=== PATIENT | female | born 1995 | race Asian ===

== ENCOUNTER 2019-09-18 17:31 | Inpatient (IN) | payer OTHER ==
[~2019-09-18] VITALS: Ht 165.1 cm; Wt 59.3 kg
[2019-09-18 19:23] LABS: AMPHETAMINES LEVEL URINE NEGATIVE (NEGATIVE); BARBITURATES URINE NEGATIVE (NEGATIVE); BENZODIAZEPINES URINE NEGATIVE (NEGATIVE); CANNABINOIDS URINE NEGATIVE (NEGATIVE); COCAINE METABOLITE URINE NEGATIVE (NEGATIVE); METHADONE URINE NEGATIVE (NEGATIVE); OPIATES URINE NEGATIVE (NEGATIVE); PHENCYCLIDINE URINE NEGATIVE (NEGATIVE)
[2019-09-18 20:37] LABS: HEMATOCRIT 40.4 % (36.0-47.0); HEMOGLOBIN 12.9 g/dl (12.0-15.5); MEAN CORPUSCULAR HEMOGLOBIN 30.6 pg (27.0-33.0); MEAN CORPUSCULAR HGB CONC 31.9 g/dl (32.0-36.5); PLATELET COUNT, AUTOMATED 258 10^3/uL (150-450); RED BLOOD COUNT 4.21 10^6/uL (4.00-5.40); WHITE BLOOD COUNT 7.6 10^3/uL (4.0-10.0)
[2019-09-18 21:16] LABS: ACETAMINOPHEN LEVEL < 2.0 UG/ML (10.0-30.0); ALBUMIN 4.1 GM/DL (3.2-5.2); ALT/SGPT 16 U/L (12-78); BILIRUBIN,DIRECT 0.1 MG/DL (0.0-0.2); BILIRUBIN,TOTAL 0.5 MG/DL (0.2-1.0); BLOOD UREA NITROGEN 12 MG/DL (7-18); CALCIUM LEVEL 8.8 MG/DL (8.5-10.1); CARBON DIOXIDE LEVEL 26 MEQ/L (21-32); CHLORIDE LEVEL 106 MEQ/L (98-107); CREATININE FOR GFR 0.63 MG/DL (0.55-1.30); ETHYL ALCOHOL (ETHANOL) < 0.003 % (0.000-0.010); GLOMERULAR FILTRATION RATE > 60.0 (>60); GLUCOSE, FASTING 77 MG/DL (70-100); SALICYLATE LEVEL < 1.7 MG/DL (5.0-30.0); SODIUM LEVEL 140 MEQ/L (136-145); TOTAL PROTEIN 7.5 GM/DL (6.4-8.2)
[2019-09-18 21:40] LABS: HCG, SERUM QUALITATIVE NEGATIVE (NEGATIVE)
[2019-09-18] MEDS ORDERED: MOM 30ML SUSPENSION UDC PO PRN (22:15)
[2019-09-18] MEDS ORDERED: ACETAMINOPHEN TAB 650MG DOSE (2X325MG) PO PRN (22:15)
[2019-09-18] MEDS ORDERED: MAALOX 30 ML SUSP *UDC PO PRN (22:15)
[2019-09-18] MEDS ORDERED: traZODone 50 MG TAB PO PRN (22:15)
[2019-09-18] MEDS ORDERED: NICOTINE 21MG/24HR 1 EA TRANSDERMAL TD PRN (22:15)
[2019-09-18 23:51] VITALS: BP 129/89
[2019-09-19 06:37] VITALS: BP 111/61
--- NOTE | 2019-09-19 07:40 | HPEPDOC ---
[facility] Medical History & Physical Date of Admission September 19, 2019 Date of Service: September 19, 2019 History and Physical CHIEF COMPLAINT: Medical consult HISTORY OF PRESENT ILLNESS: Patient is a 33-year-old female with PMH L knee chondromalacia patella, presenting with unspecified depressive disorder and thoughts of SI, however denies SI today. . She does report headache in the temporal region, which shes had in the past. She associates this headache with insomnia and takes [id number] gummies at bedtime, with minimal relief. He denies any changes in vision, chest pain, shortness of breath, nausea, vomiting, abdominal pain, issues with voiding or stooling, or new rashes. She does report baseline left knee pain, had workup in the past with recommendations for conservative management. In the ED, vital signs stable. Labs include CBC and CMP versus normal limits, TSH also within normal limits, hCG negative, UDS negative, salicylates, acetaminophen, alcohol level negative. ROS: 10 point review systems negative except per above. PMH: See above. PSH: None Family history: Reviewed and noncontributory. Father has a history of NV 4, and angina Social history: No tobacco, alcohol, or illicits, is in the [employer] Medications: Reviewed Allergies: NKDA PHYSICAL EXAMINATION: VITAL SIGNS: Please see below. GENERAL: female in No distress HEENT: Normocephalic, atraumatic, moist mucous membranes NECK: Supple CARDIOVASCULAR EXAMINATION: S1, S2 RESPIRATORY EXAMINATION: CTAB ABDOMINAL EXAMINATION: Soft, nontender, nondistended, positive bowel sounds EXTREMITIES: no edema SKIN: No rash NEUROLOGICAL EXAMINATION: Awake PSYCHIATRIC EXAMINATION: Calm and cooperative, flat affect Patient is a 33-year-old female with PMH L knee chondromalacia patella, presenting with unspecified depressive disorder. #unspecified depressive disorders with SI: Well defer to primary team on management #insomnia: likely secondary to above, trial melatonin qhs prn #muscle tension DICKSON: Tylenol prn # L knee chondromalacia patella: Continue Tylenol vs NSIADS prn, elevation, heating pad when necessary, if worse, may consider PT for exercises DVT ppx: freq ambulation Full code Dispo: f/u with primary team on dc planning Thank you for the consult. Vital Signs Vital Signs Date Time Temp Pulse Resp B/P (MAP) Pulse Ox O2 Delivery O2 Flow Rate FiO2 09/19/19 06:37 98.3 59 12 111/61 (78) 09/18/19 23:51 100 Room Air Laboratory Data Labs 24H Laboratory Tests 2 09/18/19 18:52: Urine Opiates Screen NEGATIVE, Urine Methadone Screen NEGATIVE, Urine Barbiturates Screen NEGATIVE, Urine Phencyclidine Screen NEGATIVE, Urine Amphetamines Screen NEGATIVE, Urine Benzodiazepines Screen NEGATIVE, Urine Co jazzy Metabolite Screen NEGATIVE, Urine Cannabinoids Screen NEGATIVE 09/18/19 20:05: Nucleated Red Blood Cells % (auto) 0.0, Anion Gap 8, Glomerular Filtration Rate > 60.0, Calcium Level 8.8, Total Bilirubin 0.5, Direct Bilirubin 0.1, Aspartate Amino Transf (AST/SGOT) 16, Alanine Aminotransferase (ALT/SGPT) 16, Alkaline Phosphatase 59, Total Protein 7.5, Albumin 4.1, Albumin/Globulin Ratio 1.21, Thyroid Stimulating Hormone (TSH) 2.530, Human Chorionic Gonadotropin, Qual NEGA TIVE, Salicylates Level < 1.7L, Acetaminophen Level < 2.0L, Ethyl Alcohol Level < 0.003 CBC/BMP Laboratory Tests 09/18/19 20:05 Home Medications No Active Prescriptions or Reported Meds Allergies Coded Allergies: No Known Allergies (Unverified , 09/18/19) A-FIB/CHADSVASC A-FIB History Current/History of A-Fib/PAF?: No RUBY AKHTAR MD September 19, 2019 07:35
[2019-09-19] MEDS ORDERED: IBUPROFEN 600 MG TAB PO PRN (09:00)
[2019-09-19] MEDS ORDERED: RAMELTEON 8 MG TAB (ROZEREM) PO PRN (09:00)
[2019-09-19] MEDS ORDERED: INFLUENZA QUADRIVALENT PF VACCINE 0.5ML SYRINGE (90686) IM ONE (09:00)
--- NOTE | 2019-09-19 09:54 | MHHPEPDOC ---
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 She reported that she had had increasing depression, low mood, loss of interest and generally became suicidal and wanting to kill herself. She reports that she moved to [place] at her parent's behest, but does not like living here. She reports that she finds herself stressed and wanting to return home, feeling unsupported in the local area. Review Of Systems Depression: As above. Anxiety: As above. Louann: The patient denies any episodes of euphoria/dysphoria associated with decreased need for sleep, hedonism, talkatively or impulsivity lasting longer than 5 days. Psychotic: The patient denies any experiences of auditory or visual hallucinations. They deny any episodes of paranoia or delusional thinking in the past Trauma: The patient denies any traumatic events associated with nightmares or i ntrusive thoughts. Borderline: Not screened at this time. Past Psychiatric History Has no history of admissions, suicide attempts or medication trials. Had previously seen [facility] for walk-[facility]. Allergies Please see below. Family Psychiatric History The patient denies/is unaware any history of mental health history including addictions and suicide. Social History Patient grew up in [facility], joined the and was transported here. She currently lives with her significant other and their father. She reports having difficulty with cultural adjustments. Substance Abuse History The patient denies any excessive alcohol use, tobacco or illicit drug use, denies history of substance use treatment. Medical History Patient has no significant past medical history. Mental Status Examination General: Well dressed with good hygiene Speech: Spontaneous and fluid Thought processes: Linear and logical MSK: Smooth and coordinated gait, no signs of tremors or involuntary orofacial movements Thought content: Hopelessness Abstract reasoning, and computation: Intact Description of associations: Intact Description of abnormal or psychotic thoughts: Reports hopelessness and suicidal thoughts. Judgment: Impaired Insight: Impaired Orientation: Alert and orientated 3 Cognition: Grossly normal Recent and remote memory: Intact Attention span and concentration: Intact Fund of knowledge: Adequate Mood: "okay" Affect: Profoundly dysthymic and constricted Diagnoses MDD, single episode, severe. Assessment and Plan MDD: Start sertraline 25 mg daily. The risks, benefits as well as common side effects as well as alternative treatments (including non-treatment) were discussed with the patient both in general and for their particular case. The patient selected this option out of a range. Disposition Patient will need to be retained on an involuntary stay due to the suicidal thoughts and severe depression. Problem List 1. Risk for suicide. 2. Depression. Initial Treatment Plan 1. Patient was admitted on a 9.39 legal status. 2. Complete history was obtained. 3. With patients permission, family will be contacted and database will be expanded. 4. Patients medication regimen will be reviewed and changed accordingly. 5. Patient will be provided with protected environment. 6. Patient will be treated with individual, group, and milieu therapies. 7. Patient will receive supportive psych-education. 8. Discharge planning will commence immediately. 9. Outpatient follow-up treatment will be strongly recommended. 10. The initial treatment plan will focus initially on: Estimated Length Of Stay 3 days. Time Spent 70 minutes with greater than 50% of the time spent on counseling/coordination of care. Vital Signs Vital Signs Date Time Temp Pulse Resp B/P (MAP) Pulse Ox O2 Delivery O2 Flow Rate FiO2 09/19/19 06:37 98.3 59 12 111/61 (78) 09/18/19 23:51 100 Room Air Laboratory Data 24H Labs Laboratory Tests 2 09/18/19 18:52: Urine Opiates Screen NEGATIVE, Urine Methadone Screen NEGATIVE, Urine Barbiturates Screen NEGATIVE, Urine Phencyclidine Screen NEGATIVE, Urine Amphetamines Screen NEGATIVE, Urine Benzodiazepines Screen NEGATIVE, Urine Cocaine Metabolite Screen NEGATIVE, Urine Cannabinoids Screen NEGATIVE 09/18/19 20:05: Nucleated Red Blood Cells % (auto) 0.0, Anion Gap 8, Glomerular Filtration Rate > 60.0, Calcium Level 8.8, Total Bilirubin 0.5, Direct Bilirubin 0.1, Aspartate Amino Transf (AST/SGOT) 16, Alanine Aminotransferase (ALT/SGPT) 16, Alkaline Phosphatase 59, Total Protein 7.5, Albumin 4.1, Albumin/Globulin Ratio 1.21, Thyroid Stimulating Hormone (TSH) 2.530, Human Chorionic Gonadotropin, Qual NEGATIVE, Salicylates Level < 1.7L, Acetaminophen Level < 2.0L, Ethyl Alcohol Level < 0.003 CBC/BMP Laboratory Tests 09/18/19 20:05 Medications No Active Prescriptions or Reported Meds Allergies Coded Allergies: No Known Allergies (Unverified , 09/18/19) RONEY DANIEL DO September 19, 2019 09:54
[2019-09-19] MEDS ORDERED: SERTRALINE HCL 25 MG TABLET PO ONE (11:15)
[2019-09-19 16:23] VITALS: BP 118/73
[2019-09-20 06:19] VITALS: BP 104/66
[2019-09-20] MEDS: SERTRALINE HCL 25 MG TABLET PO SCH (08:20)
--- NOTE | 2019-09-20 09:13 | MHIPNPDOC ---
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 She reported that she had had increasing depression, low mood, loss of interest and generally became suicidal and wanting to kill herself. She reports that she moved to [place] at her parent's behest, but does not like living here. She reports that she finds herself stressed and wanting to return home, feeling unsupported in the local area. Interval History The patient is met with today. She reports she is feeling better and having less depression. She reports her loss of interest and suicidal thoughts are managed since starting the sertraline. She reports tolerating it well with no problems. She has been engaging in care with no behavioral problems overnight. Review Of Systems General: Denies fever or appetite changes Cardiovascular: Denies Chest pain or palpations GI: Denies Nausea, vomiting, or bowel changes Respiratory: Denies shortness of breath or cough Neuro: Denies dizziness, tremors Derm: Denies any rashes or pruritus : Denies any dysuria or urinary problems MSK: Denies any muscle tightness or stiffness HEENT: Denies any vision changes or headaches Insert normal exam Psychotherapy None on this visit. Vital Signs Reviewed. Mental Status Examination General: Well dressed with good hygiene Speech: Spontaneous and fluid Thought processes: Linear and logical MSK: Smooth and coordinated gait, no signs of tremors or involuntary orofacial movements Thought content: Future orientated Abstract reasoning, and computation: Intact Description of associations: Intact Description of abnormal or psychotic thoughts: Denies any suicidal or homicidal ideation. Denies any auditory or visual hallucinations. Does not appear to be responding to internal stimuli. Does not appear to be endorsing any bizarre or p aranoid ideation. Judgment: fair Insight: fair Orientation: Alert and orientated 3 Cognition: Grossly normal Recent and remote memory: Intact Attention span and concentration: Intact Fund of knowledge: Adequate Mood: "okay" Affect: Euthymic with a full range Diagnoses MDD, single episode, severe. Assessment and Plan MDD: Continue sertraline 25 mg daily. The risks, benefits as well as common side effects as well as alternative treatments (including non-treatment) were discussed with the patient both in [facility] and for their particular case. The patient selected this option out of a range. Disposition We'll continue to observe over the weekend, if continues to improve, we'll discharge on Monday. Time Spent 15 minutes. Monday Vital Signs Vital Signs Date Time Temp Pulse Resp B/P (MAP) Pulse Ox O2 Delivery O2 Flow Rate FiO2 09/20/19 06:19 98.2 64 14 104/66 (79) 97 Room Air Current Medications Current Medications Medications (Trade) Dose Ordered Sig/Alana Route PRN Reason Start Time Stop Time Status Last Admin Dose Admin Acetaminophen (Tylenol Tab) 650 mg Q6HP PRN PO HEADACHE or DISCOMFORT 09/18/19 22:15 Al Hydrox/Mg Hydrox/Simethicone (Mylanta) 30 ml Q4HP PRN PO HEARTBURN/INDIGESTION 09/18/19 22:15 Home Med (Med Rec Complete!) ASDIRECTED XX 09/18/19 21:45 09/18/19 21:36 DC Ibuprofen (Advil) 600 mg Q6HP PRN PO L knee pain if tylenol fails 09/19/19 09:00 Magnesium Hydroxide (Milk Of Magnesia) 30 ml DAILYPRN PRN PO CONSTIPATION 09/18/19 22:15 Nicotine (Nicoderm Cq 21mg) 1 patch DAILY PRN TD Nicotine withdrawl 09/18/19 22:15 Ramelteon (Rozerem) 8 mg QHS PRN PO INSOMNIA 09/19/19 09:00 09/19/19 09:03 DC Sertraline HCl (Zoloft) 25 mg DAILY PO 09/20/19 09:00 09/20/19 08:20 Trazodone HCl (Desyrel) 50 mg QHSP PRN PO INSOMNIA 09/18/19 22:15 Allergies Coded Allergies: No Known Allergies (Unverified , 09/18/19) RONEY DANIEL DO September 20, 2019 09:13
[2019-09-20 16:04] VITALS: BP 134/89
[2019-09-21 06:37] VITALS: BP 105/51
[2019-09-21] MEDS: SERTRALINE HCL 25 MG TABLET PO SCH (08:45)
[2019-09-21 16:17] VITALS: BP 111/66
[2019-09-22 06:34] VITALS: BP 115/56
[2019-09-22] MEDS: SERTRALINE HCL 25 MG TABLET PO SCH (08:22)
[2019-09-22 09:00] VITALS: BP 115/56
--- NOTE | 2019-09-22 09:49 | MHIPN ---
DATE: 09/21/2019 The patient today tells me that she is doing "good". She says that she feels the medications are helping her. She says she slept good. MENTAL STATUS EXAMINATION: She is alert and oriented times three. Pleasant and cooperative. Verbally spontaneous. There is no formal thought disorder. Her mood is good. Affect is appropriate to mood. She is not psychotic. She is denying suicidal or homicidal ideations. Concentration is fair. Memory is good. Insight and judgment fair. DIAGNOSIS: Major depressive disorder, single episode, severe. TREATMENT PLAN: We will continue to monitor the patient for continued stabilization of her mood and continued resolution of suicidal ideations.
[2019-09-22 16:11] VITALS: BP 121/67
[2019-09-23 06:39] VITALS: BP 124/60
[2019-09-23] MEDS: SERTRALINE HCL 25 MG TABLET PO SCH (09:54)
[2019-09-23] MEDS ORDERED: SERT25TA21 PO (10:36)
[2019-09-23] MEDS ORDERED: TRAZ-252 PO (10:36)
[2019-09-23] MEDS ORDERED: NICO21PAT TD (10:36)
--- NOTE | 2019-09-23 11:57 | MHIPNPDOC ---
[facility] Progress Note Progress Note DATE OF SERVICE: 09/23/19 HISTORY: . VITAL SIGNS: See below. NEW TEST RESULTS: . CURRENT MEDICATIONS: See below. MENTAL STATUS EXAMINATION: Patient is a -year old female, who is . Speech: Is . Language skills are . Thought processes including: . Thought content: . Abstract reasoning, and computation: . Description of asso ciations: . Description of abnormal or psychotic thoughts: . Judgment: . Insight: [very limited, good, fair. poor]. Orientation: . Recent and remote memory: . Attention span and concentration: . Language: . Fund of knowledge: . Mood: . Affect: . DIAGNOSES: 1. . 2. . 3. . ASSESSMENT: MANAGEMENT PLAN: . TIME SPENT: minutes. Vital Signs Vital Signs Date Time Temp Pulse Resp B/P (MAP) Pulse Ox O2 Delivery O2 Flow Rate FiO2 09/23/19 06:39 97.4 50 14 124/60 (81) Room Air 09/22/19 09:00 98 Current Medications Current Medications Medications (Trade) Dose Ordered Sig/Alana Route PRN Reason Start Time Stop Time Status Last Admin Dose Admin Acetaminophen (Tylenol Tab) 650 mg Q6HP PRN PO HEADACHE or DISCOMFORT 09/18/19 22:15 Al Hydrox/Mg Hydrox/Simethicone (Mylanta) 30 ml Q4HP PRN PO HEARTBURN/INDIGESTION 09/18/19 22:15 Home Med (Med Rec Complete!) ASDIRECTED XX 09/18/19 21:45 09/18/19 21:36 DC Ibuprofen (Advil) 600 mg Q6HP PRN PO L knee pain if tylenol fails 09/19/19 09:00 Magnesium Hydroxide (Milk Of Magnesia) 30 ml DAILYPRN PRN PO CONSTIPATION 09/18/19 22:15 Nicotine (Nicoderm Cq 21mg) 1 patch DAILY PRN TD Nicotine withdrawl 09/18/19 22:15 Ramelteon (Rozerem) 8 mg QHS PRN PO INSOMNIA 09/19/19 09:00 09/19/19 09:03 DC Sertraline HCl (Zoloft) 25 mg DAILY PO 09/20/19 09:00 09/23/19 09:54 Trazodone HCl (Desyrel) 50 mg QHSP PRN PO INSOMNIA 09/18/19 22:15 Allergies Coded Allergies: No Known Allergies (Unverified , 09/18/19) RONEY DANIEL DO September 23, 2019 11:57
--- NOTE | 2019-09-23 23:07 | MHIPN ---
DATE: 09/22/2019 The patient tells me today that she had just been sleeping, but she was alert enough. She said she slept good last night. She says that she is only a little depressed because at this point she would like to be discharged. MENTAL STATUS EXAM: The patient is alert and oriented times three. Eye contact is good. Verbally spontaneous. There is no formal thought disorder. She says her mood was mildly depressed. Affect full range and appropriate. She is not psychotic, suicidal or homicidal. Concentration is fair. Memory intact. Insight and judgment is fair. DIAGNOSIS: Major depressive disorder, single episode, severe. TREATMENT PLAN: At this point, we will continue to monitor this patient for continued elevation and stabilization of her mood and continued resolution of any suicidal ideation. CESAR
--- NOTE | 2019-09-24 16:31 | MHDSPDOC ---
[facility] Discharge Summary Discharge Summary DATE OF ADMISSION: September 18, 2019 at 22:03 DATE OF DISCHARGE: September 23, 2019 at 12:50 Discharge Norma In MRN: N/A Date of : N/A Date of Service: 09/23/2019 Diagnoses MDD, single episode, severe. 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 She reported that she had had increasing depression, low mood, loss of interest and generally became suicidal and wanting to kill herself. She reports that she moved to [place] at her parent's behest, but does not like living here. She reports that she finds herself stressed and wanting to return home, feeling unsupported in the local area. Consultants Involved Hospitalist/PCP screening Treatment and Progress On The Unit The patient is admitted to the inpatient mental health unit. She is initially started on sertraline 25 mg daily with positive results, her depression resolves quite quickly. Her fatigue improves and she engages in treatment more. She was observed over the weekend and further made good improvements improving in her insight and ability to attend to her needs. She did not demonstrate any suicidal or homicidal ideation shortly after she had arrived and had been started on the sertraline. She did well without any further incidences or behavioral problems and was discharged at her request. 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 She is treated with an appropriate first line agent, makes good improvement, and is discharged. The patient at the time of discharge did not meet criteria for involuntary admission/extension due to having a normal mental status exam, fair insight into the situation, They are engaged in the discharge process, as well as being friendly and amenable in behavioral control and havent been engaging in any observed concerning behavior or ideation recently. They decline voluntary extension/admission at this time and must be discharged in good danitza, as Im unable to make a case for holding the patient against their will. They may have historical risk factors of admissions and other interactions with psychiatry however, those are not modifiable from a clinical perspective. The patient will need to be discharged in good danitza. Mental Status Examination General: Well dressed with good hygiene Speech: Spontaneous and fluid Thought processes: Linear and logical MSK: Smooth and coordinated gait, no signs of tremors or involuntary orofacial movements Thought content: Future orientated Abstract reasoning, and computation: Intact Description of associations: Intact Description of abnormal or psychotic thoughts: Denies any suicidal or homicidal ideation. Denies any auditory or visual hallucinations. Does not appear to be responding to internal stimuli. Does not appear to be endorsing any bizarre or paranoid ideation. Judgment: fair Insight: fair Orientation: Alert and orientated 3 Cognition: Grossly normal Recent and remote memory: Intact Attention span and concentration: Intact Fund of knowledge: Adequate Mood: "okay" Affect: Euthymic with a full range Follow Up The social work team worked during the predischarge meeting in order to evaluate for further issues of lethality address them fully before discharge. They worked on safety planning with the patient's family members in order to ensure that the patient will have a safe and effective discharge. Time Spent The amount of time spent in the coordination of care for this patient was approximately 45 minutes. Monday Vital Signs/I&Os Vital Signs Date Time Temp Pulse Resp B/P (MAP) Pulse Ox O2 Delivery O2 Flow Rate FiO2 09/23/19 06:39 97.4 50 14 124/60 (81) Room Air 09/22/19 09:00 98 Medications Scheduled Sertraline HCl (Sertraline HCl) 25 Mg Tablet, 25 MG PO DAILY for mood for 7 Days, #7 Scheduled PRN Nicotine (Nicotine Patch) 21 Mg Patch.td24, 1 PATCH TD DAILY PRN for Nicotine withdrawl for 30 Days, #30 Trazodone HCl (Trazodone HCl) 50 Mg Tablet, 50 MG PO QHSP PRN for INSOMNIA for 7 Days, #7 Allergies Coded Allergies: No Known Allergies (Unverified , 09/18/19) RONEY DANIEL DO September 24, 2019 16:31
== END 2019-09-23 12:50 | disposition home or self-care (01) | DRG 885 ==
LOC: M ED 17:31 → M ED INP 22:03 → M PSY 22:52
PROVIDERS: ADMIT Psychiatry & Neurology Addiction Medicine; ATTEND Psychiatry & Neurology Addiction Medicine
DX: F32.2 Major depressive disorder, single episode, severe without psychotic features (principal); M22.42 Chondromalacia patellae, left knee; G47.00 Insomnia, unspecified